=== PATIENT | male | born 1990 | race Caucasian/White ===

== ENCOUNTER 2017-08-04 22:09 | Emergency (ER) | payer SELFPAY ==
[~2017-08-04] VITALS: Ht 167.6 cm; Wt 74.8 kg
[2017-08-05] MEDS ORDERED: CEPHALEXIN500 MG PO (00:48)
== END 2017-08-05 01:06 | disposition home or self-care (01) ==
LOC: ED 22:09
DX: N39.0 Urinary tract infection, site not specified (principal); F15.90 Other stimulant use, unspecified, uncomplicated; F17.200 Nicotine dependence, unspecified, uncomplicated
CPT/HCPCS: 74177; 80053; 81001; 83690; 85025; 87088; 96374; 96375; 99284; J1885; J2405; Q9967